=== PATIENT | male | born 1950 | race Caucasian/White ===

== ENCOUNTER 2024-05-07 09:44 | Emergency (ER) | payer MEDICARE, SELFPAY ==
--- NOTE | ~2024-05-07 | CT_ITS ---
EXAMINATION: CT thoracic spine wo con DATE: 05/07/2024 10:21 INDICATION: Trauma. Back pain. TECHNIQUE: Computed tomography (CT) of the thoracic spine was performed without intravenous contrast. Automated exposure control and iterative reconstruction technique were employed. Exam dose: 1397.10 mGy-cm total exam DLP. COMPARISON: None FINDINGS: Likely chronic mild fracture deformities of T1 and T2, with mild depression of the superior vertebral endplate of T2. There is likely chronic mild cupping of the superior vertebral endplate of T3. There is moderate anterior wedge compression fracture deformity of undetermined age of 25. Mild anterior wedging and concavity of superior table and plate of T9. Diffuse idiopathic skeletal hyperostosis of the thoracic spine. . 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 Reviewed, dictated and finalized at [facility].
--- NOTE | ~2024-05-07 | XR_ITS ---
XR chest 1V DATE: 05/07/2024 10:23 INDICATION: Chest wall pain TECHNIQUE: AP view COMPARISON: None FINDINGS: This is an apical lordotic AP Limited chest Examination. No pulmonary infiltrate or consolidation, pleural effusion or pulmonary vascular congestion or pneumo thorax is evident. The cardiac and mediastinal silhouette appear unremarkable. Diffuse osteopenia. IMPRESSION: No active pulmonary disease Osteopenia Reviewed, dictated and finalized at [facility].
--- NOTE | ~2024-05-07 | CT_ITS ---
EXAMINATION: CT brain wo con DATE: 05/07/2024 10:21 INDICATION: Patient fell and struck right side of 4 head. Right forehead abrasion. Neck pain. TECHNIQUE: Computed tomography (CT) of the head was performed without intravenous contrast. The mA wa s adjusted according to patient size. Iterative reconstruction technique was employed. Exam dose: 60 5.33 mGy-cm total exam DLP. COMPARISON: None FINDINGS: Left vertebral, basilar and bilateral carotid siphon internal carotid artery calcifications . No intracranial mass lesion or hemorrhage or recent cerebrovascular accident is evident. Left basal g anglia chronic lacunar infarcts. There is nonspecific diminished attenuation of the cerebral white ma tter, likely due to chronic small vessel ischemic changes. No midline shift or mass effect. There is subcutaneous emphysema in the right frontal scalp consistent with laceration. No skull fract ure or coup or contrecoup intracranial injury is noted. No subdural or epidural hematoma. Nonspecific approximately 2.8 x 10.7 mm groundglass density of the medial aspect of the right frontal bone, of uncertain clinical significance. Recommend clinical correlation and possibly bone scan if c linically appropriate. IMPRESSION: Subcutaneous emphysema of the right frontal scalp; no skull fracture or acute intracrani al finding is noted Left basal ganglia chronic appearing infarcts, cerebral atherosclerosis and chronic small vessel isch emic changes in cerebral white matter Reviewed, dictated and finalized at [facility]. Reviewed, dictated and finalized at [facility]. IMPRESSION: Subcutaneous emphysema of the right frontal scalp; no skull fractu re or acute intracranial finding is noted Left basal ganglia chronic appearing infarcts, cerebral atherosclerosis and chr onic small vessel ischemic changes in cerebral white matter
--- NOTE | ~2024-05-07 | CT_ITS ---
EXAMINATION: CT cervical spine wo con DATE: 05/07/2024 10:21 INDICATION: Fall. Neck pain. Right forehead abrasion. TECHNIQUE: Computed tomography (CT) of the cervical spine was performed without intravenous contrast. Automated exposure control and iterative reconstruction technique were employed. Exam dose: 466.23 mGy-cm total exam DLP. COMPARISON: None FINDINGS: Normal articulation at the atlantoaxial joints. C1 and C2 are normally aligned and the odon toid process is intact. No fracture or dislocation or locked facet or prevertebral soft tissue swelli ng. There is mild degenerative disease at C2-3, C3-4. Moderately severe degenerative disease at C5-6 and C6-7. There is degenerative change at the apophyseal joints throughout the cervical spine, which likely acc ounts for minimal anterolisthesis at C4-5. Likely old fracture deformities of T1 and T2 vertebral bodies. IMPRESSION: Likely old fractures of T1 and T2 vertebral bodies. No recent cervical spine fracture is detected Multilevel degenerative disc disease, greatest at C5-6 and C6-7 Minimal anterolisthesis at C4-5, likely due to degenerative change noted at the apophyseal joints Reviewed, dictated and finalized at [facility] Reviewed, dictated and finalized at [facility]. IMPRESSION: Likely old fractures of T1 and T2 vertebral bodies. No recent cerv ical spine fracture is detected Multilevel degenerative disc disease, greatest at C5-6 and C6-7 Minimal anterolisthesis at C4-5, likely due to degenerative change noted at the apophyseal joints
[2024-05-07 09:53] VITALS: BP 143/82; PULSE 63; RESP 16; O2SAT 97
--- NOTE | 2024-05-07 10:06 | ED.FALL ---
HPI - Fall General Chief Complaint: Fall Stated Complaint: FALL, HEAD INJURY ON ASPIRIN Time Seen by Provider: 05/07/24 09:51 History of Present Illness HPI Narrative: 74-year-old male presenting to the emergency department for evaluation after having a ground level fall. Patient reports he was working in his yd when he lost his balance causing him to stumble on a hill falling forward and striking his head on a rock. Patient denies any loss consciousness. Patient does have a laceration to his right forehead as result. Related Data Allergies Allergy/AdvReac Type Severity Reaction Status Date / Time cefuroxime Allergy Swelling Verified 05/07/24 09:47 of Lip/Tongue/Throat Review of Systems Review of Systems: All systems reviewed & are unremarkable except as noted in HPI and below Exam Narrative: APPEARANCE: Well appearing, no pain, no distress, well-nourished. HEAD: normocephalic, laceration. EYES: PERRLA/EOMI, conjunctivae clear. NOSE: Normal no drainage EARS:TMS clear with good light reflex. THROAT: Pharynx clear, no exudate. NECK: Supple. No adenopathy, no masses. RESPIRATORY: Airway patent, respirations nonlabored. Clear to auscultation bilaterally, no rales, rhonchi, wheezing. CARDIOVASCULAR: Regular rate and rhythm without murmurs rubs or gallops. ABDOMINAL: Soft, nontender, nondistended, normal bowel sounds MUSCULOSKELETAL: Moves all extremities. Strength/ROM intact, No edema, No calf tenderness. NEURO: Alert. Cranial nerves II through XII intact. Course Vital Signs Vital signs: Vital Signs Pulse Rate 63 05/07/24 09:53 Respiratory Rate 16 05/07/24 09:53 Blood Pressure 143/82 H 05/07/24 09:53 Pulse Oximetry 97 05/07/24 09:53 Oxygen Delivery Room Air 05/07/24 09:53 Pulse Rate 63 05/07/24 09:53 Respiratory Rate 16 05/07/24 09:53 Blood Pressure 143/82 H 05/07/24 09:53 Pulse Oximetry 97 05/07/24 09:53 Oxygen Delivery Room Air 05/07/24 09:53 Procedures Laceration Laceration 1: Site: face Side (If applicable): right Size (cm): 6 Description: stellate and irregular Depth: simple, single layer Local Anesthetic: lidocaine 1% and with epi Amount of anesthesia used (mL): 4 Pre-repair: wound explored, irrigated and irrigated extensively ====== Skin Level ====== Skin layer closed with: nylon Size (cm): 6-0 Number of sutures: 6 Technique: simple, interrupted ====== Subcutaneous Layer ====== ====== Muscle Layer ====== ====== Tendon Layer ====== MDM - Fall MDM Narrative Medical decision making narrative: 74-year-old male presents emergency department for evaluation after having a ground level fall resulting in an injury to his forehead and right ear. Superficial lacerations to right ear. Old fractures of thoracic spine vertebra, compression fracture of C5. Patient had no significant tenderness to palpation of C5 for thoracic spine Laceration was repaired described. Patient is neurologically intact. No significant reproducible tenderness to cervical spine but does have some thoracic spine tenderness with no deformity Differential Diagnosis Differential diagnosis: Likely syncope, concussion with loss of consciousness and other (Subarachnoid hemorrhage, subdural hematoma, scalp laceration) Imaging Data Radiologist's impression: Impressions Chest X-Ray 05/07/24 10:43 IMPRESSION: No active pulmonary disease Osteopenia Head CT 05/07/24 10:59 IMPRESSION: Subcutaneous emphysema of the right frontal scalp; no skull fracture or acute intracranial finding is noted Left basal ganglia chronic appearing infarcts, cerebral atherosclerosis and chronic small vessel ischemic changes in cerebral white matter Cervical Spine CT 05/07/24 11:13 IMPRESSION: Likely old fractures of T1 and T2 vertebral bodies. No recent cervical spine fracture is detected M
[2024-05-07] MEDS: LIDOCAINE, EPINEPHRINE, TETRACAINE VISCOUS SOLN 3 ML (10:33)
[2024-05-07] MEDS: HYDROcodone/acetaminophen (*CRX) 5-325 MG TABLET 1 TAB PO (12:12)
[2024-05-07] MEDS: CYCLOBENZAPRINE HCL 10 MG TABLET PO (12:12)
[2024-05-07] MEDS: ACETAMINOPHEN 500 MG TABLET 1000 MG PO (12:12)
== END 2024-05-07 12:22 | disposition home or self-care (01) ==
PROVIDERS: Emergency Provider Emergency Medicine
DX: S01.81XA Laceration without foreign body of other part of head, initial encounter (principal); S12.400A Unspecified displaced fracture of fifth cervical vertebra, initial encounter for closed fracture; M50.30 Other cervical disc degeneration, unspecified cervical region; M85.88 Other specified disorders of bone density and structure, other site; M48.14 Ankylosing hyperostosis [Forestier], thoracic region; W01.198A Fall on same level from slipping, tripping and stumbling with subsequent striking against other object, initial encounter
CPT/HCPCS: 12014; 70450; 71045; 72125; 72128; 99284; A9270